=== PATIENT | male | born 1975 | race Caucasian/White ===

== ENCOUNTER 2017-08-28 19:45 | Inpatient (IN) | payer OTHER ==
[~2017-08-28] VITALS: Ht 149.9 cm; Wt 37.7 kg
[2017-08-28] MEDS ORDERED: divalproex sod 125mg sprinkle cap PO ONE (20:30)
[2017-08-28] MEDS ORDERED: divalproex sod 125mg sprinkle cap PO SCH (20:30)
[2017-08-28 21:01] LABS: BASOPHILS # (AUTO) 0.1 X10'3 (0-0.2); BASOPHILS % (AUTO) 0.4 % (0-1); EOSINOPHILS # (AUTO) 0.4 X10'3 (0-0.9); EOSINOPHILS % (AUTO) 2.5 % (0-6); HEMATOCRIT 34.1 % (42.0-52.0); HEMOGLOBIN 11.7 g/dl (14.0-17.9); LYMPHOCYTES # (AUTO) 3.5 X10'3 (1.1-4.8); MEAN CORPUSCULAR HEMOGLOBIN 27.6 PG (27.0-31.0); MEAN CORPUSCULAR HGB CONC 34.2 % (33.0-36.5); MEAN CORPUSCULAR VOLUME 80.6 FL (78-98); MONOCYTES # (AUTO) 1.5 X10'3 (0-0.9); MONOCYTES % (AUTO) 8.8 % (2-12); NEUTROPHILS # (AUTO) 11.1 X10'3 (1.8-7.7); NEUTROPHILS % (AUTO) 67.3 % (42-75); PLATELET COUNT 348 X10'3 (140-440); RED BLOOD COUNT 4.23 X10'6 (4.70-6.10); RED CELL DISTRIBUTION WIDTH 20.7 % (11.5-14.5); WHITE BLOOD COUNT 16.5 X10'3 (4.5-11.0)
[2017-08-28 21:24] LABS: ALANINE AMINOTRANSFERASE 25 U/L (12-78); ALBUMIN 3.9 G/DL (3.4-5.0); ALBUMIN/GLOBULIN RATIO 0.8 (1.1-1.5); ALKALINE PHOSPHATASE 81 IU/L (46-116); ANION GAP 13 (8-16); ASPARTATE AMINO TRANSFERASE 26 U/L (10-37); BILIRUBIN,TOTAL 0.3 MG/DL (0.1-1.0); BLOOD UREA NITROGEN 35 MG/DL (7-18); BUN/CREATININE RATIO 34.3 (5.4-32.0); CALCIUM 9.5 MG/DL (8.5-10.1); CHLORIDE 104 MMOL/L (99-107); CREATININE 1.02 MG/DL (0.60-1.10); GLUCOSE 153 MG/DL (70-104); POTASSIUM 3.6 MMOL/L (3.5-5.1); SODIUM 144 MMOL/L (135-145); TOTAL CARBON DIOXIDE 27.4 MMOL/L (24-32); TOTAL PROTEIN 8.6 G/DL (6.4-8.2); eGFR 80 ML/MIN
[2017-08-29 00:15] LABS: VALPROATE 9 UG/ML (50-100)
[2017-08-29 00:18] LABS: CARBAMAZEPINE (TEGRETOL) 2.5 UG/ML (4.0-12.0)
[2017-08-29] MEDS ORDERED: normal saline 1000ml 1,000 ML IV SCH (00:21)
[2017-08-29] MEDS ORDERED: magnesium 2GM in 50ml NS 50 ML IV PRN (00:25)
[2017-08-29] MEDS ORDERED: magnesium hydroxide 30ml (MOM) UD suspension PO PRN (00:25)
[2017-08-29] MEDS ORDERED: mag hydrox/Alum hydrox/simeth 30ml oral suspension PO PRN (00:25)
[2017-08-29] MEDS ORDERED: ondansetron/PF 4mg/2ml inj IV PRN (00:25)
[2017-08-29] MEDS ORDERED: potassium Cl 20 mEq SR tablet PO PRN ×2 (00:25)
[2017-08-29] MEDS ORDERED: magnesium 4gm in 100ml NS 100 ML IV PRN (00:25)
[2017-08-29] MEDS ORDERED: magnesium Cl slow-release 64mg tablet PO PRN (00:25)
[2017-08-29] MEDS ORDERED: potassium Cl 40MEQ/NS 500ml 500 ML IV PRN ×2 (00:25)
[2017-08-29] MEDS ORDERED: acetaminophen 325mg tablet PO PRN (00:25)
[2017-08-29 00:51] LABS: CLARITY,URINE CLEAR (Clear); COLOR,URINE YELLOW (Yellow); GLUCOSE, URINE NEGATIVE (Neg); KETONES,URINE NEGATIVE (Neg); LEUKOCYTE ESTERASE ,URINE NEGATIVE (Neg); NITRITES, URINE NEGATIVE (Neg); OCCULT BLOOD,URINE TRACE-INTACT (Neg); PH,URINE 5.5 (4.8-8.0); PROTEIN,URINE TRACE mg/dl (Neg); UROBILINOGEN,URINE 0.2 E.U/dL (0.2-1.0)
[2017-08-29 00:59] LABS: UA COLLECTION TYPE CLN CATCH MIDSTREAM
[2017-08-29 01:00] LABS: BACTERIA,URINE FEW /HPF (Neg); MUCUS STRANDS FEW /LPF (Neg); RBC,URINE 0-2 /HPF (0-2); SQUAMOUS EPITHELIAL CELL,UR FEW /LPF (FEW); WBC,URINE 0-4 /HPF (0-4)
[2017-08-29] MEDS ORDERED: MULT-38 PO (02:36)
[2017-08-29] MEDS ORDERED: CARB200C4 PO (02:36)
[2017-08-29] MEDS ORDERED: DIVA125C10 PO (02:36)
[2017-08-29] MEDS ORDERED: LACT1CAP65 PO (02:36)
[2017-08-29] MEDS ORDERED: LORazepam 2 mg/ml vial IM ONE (04:10)
[2017-08-29] MEDS: multivitamins, therapeutics tablet PO SCH (06:41)
[2017-08-29] MEDS: lactobacillus rhamnosus 10,000 MMU CELLS/CAPSULE PO SCH ×2 (06:41→20:00)
[2017-08-29 07:36] VITALS: BP 108/64
[2017-08-29] MEDS ORDERED: divalproex sod 125mg sprinkle cap PO SCH (08:00)
[2017-08-29] MEDS ORDERED: CefTRIAXone 1000mg IM Kit (w/lidocaine diluent) IM SCH (08:00)
[2017-08-29] MEDS ORDERED: carBAMazepine Ext. Release 200 MG TAB.ER.12H PO SCH (08:00)
[2017-08-29] MEDS: NORMAL SALINE IV SCH ×4 (08:00→19:40)
[2017-08-29] MEDS ORDERED: LACTOBACILLUS ACIDOPHILUS PO SCH (08:00)
[2017-08-29] MEDS: VALPROATE SOD IV SCH ×4 (08:00→19:40)
[2017-08-29] MEDS: K and/or MAG REPLACEMENT MC SCH (08:00)
[2017-08-29 10:00] VITALS: BP 102/64
[2017-08-29 14:16] LABS: BASOPHILS # (AUTO) 0.1 X10'3 (0-0.2); BASOPHILS % (AUTO) 0.5 % (0-1); EOSINOPHILS # (AUTO) 0.2 X10'3 (0-0.9); EOSINOPHILS % (AUTO) 1.2 % (0-6); HEMOGLOBIN 11.1 g/dl (14.0-17.9); LYMPHOCYTES # (AUTO) 2.8 X10'3 (1.1-4.8); LYMPHOCYTES % (AUTO) 18.3 % (21-51); MEAN CORPUSCULAR HGB CONC 33.7 % (33.0-36.5); MEAN CORPUSCULAR VOLUME 80.1 FL (78-98); MEAN PLATELET VOLUME 7.8 FL (7.4-10.4); MONOCYTES # (AUTO) 1.5 X10'3 (0-0.9); MONOCYTES % (AUTO) 9.3 % (2-12); NEUTROPHILS % (AUTO) 70.7 % (42-75); PLATELET COUNT 307 X10'3 (140-440); RED BLOOD COUNT 4.12 X10'6 (4.70-6.10); RED CELL DISTRIBUTION WIDTH 20.2 % (11.5-14.5); WHITE BLOOD COUNT 15.6 X10'3 (4.5-11.0)
[2017-08-29] MEDS ORDERED: CefTRIAXone/D5W-Rocephin 1gm 50 ML IV ONE (14:20)
[2017-08-29] MEDS: heparin, porcine 5000 units/ml vial SQ SCH ×2 (14:55→20:00)
[2017-08-29] MEDS: potassium CL 20mEq in D5-1/2NS 1,000 ML IV SCH (15:56)
[2017-08-29 18:00] VITALS: BP 118/60
[2017-08-30] MEDS: VALPROATE SOD IV SCH ×4 (02:12→19:57)
[2017-08-30] MEDS: NORMAL SALINE IV SCH ×4 (02:12→19:57)
[2017-08-30] MEDS: potassium CL 20mEq in D5-1/2NS 1,000 ML IV SCH ×2 (02:14→11:21)
[2017-08-30 06:11] LABS: BASOPHILS # (AUTO) 0.1 X10'3 (0-0.2); BASOPHILS % (AUTO) 0.4 % (0-1); EOSINOPHILS # (AUTO) 0.3 X10'3 (0-0.9); EOSINOPHILS % (AUTO) 2.1 % (0-6); HEMATOCRIT 30.6 % (42.0-52.0); HEMOGLOBIN 10.4 g/dl (14.0-17.9); LYMPHOCYTES # (AUTO) 2.7 X10'3 (1.1-4.8); LYMPHOCYTES % (AUTO) 18.8 % (21-51); MEAN CORPUSCULAR HEMOGLOBIN 27.3 PG (27.0-31.0); MEAN CORPUSCULAR HGB CONC 34.1 % (33.0-36.5); MEAN CORPUSCULAR VOLUME 80.2 FL (78-98); MEAN PLATELET VOLUME 8.6 FL (7.4-10.4); MONOCYTES # (AUTO) 1.3 X10'3 (0-0.9); MONOCYTES % (AUTO) 9.1 % (2-12); NEUTROPHILS % (AUTO) 69.6 % (42-75); PLATELET COUNT 245 X10'3 (140-440); RED BLOOD COUNT 3.82 X10'6 (4.70-6.10); RED CELL DISTRIBUTION WIDTH 20.5 % (11.5-14.5); WHITE BLOOD COUNT 14.4 X10'3 (4.5-11.0)
[2017-08-30 06:26] LABS: ALBUMIN 2.7 G/DL (3.4-5.0); ANION GAP 12 (8-16); BLOOD UREA NITROGEN 14 MG/DL (7-18); BUN/CREATININE RATIO 18.2 (5.4-32.0); CALCIUM 8.5 MG/DL (8.5-10.1); CHLORIDE 107 MMOL/L (99-107); CREATININE 0.77 MG/DL (0.60-1.10); GLUCOSE 116 MG/DL (70-104); MAGNESIUM 1.9 MG/DL (1.5-2.4); POTASSIUM 3.6 MMOL/L (3.5-5.1); SODIUM 141 MMOL/L (135-145); TOTAL CARBON DIOXIDE 22.5 MMOL/L (24-32); eGFR > 90 ML/MIN
[2017-08-30] MEDS: K and/or MAG REPLACEMENT MC SCH (08:00)
[2017-08-30] MEDS ORDERED: carbamazepine 100mg ER CAPSULE (12-hour) PO SCH (08:00)
[2017-08-30] MEDS: heparin, porcine 5000 units/ml vial SQ SCH ×2 (08:00→20:00)
[2017-08-30] MEDS: multivitamins, therapeutics tablet PO SCH (08:00)
[2017-08-30] MEDS: lactobacillus rhamnosus 10,000 MMU CELLS/CAPSULE PO SCH ×2 (08:37→19:54)
[2017-08-30] MEDS: CefTRIAXone inj 1,000 MG in normal saline 100ml IV soln 100 ML IV SCH (08:38)
[2017-08-30 10:53] VITALS: BP 122/68
[2017-08-30] MEDS: ACETAMINOPHEN 160 MG PO PRN (15:58)
[2017-08-30 18:00] VITALS: BP 110/68
[2017-08-30] MEDS: carBAMazepine Ext. Release 200 MG TAB.ER.12H PO SCH (20:00)
[2017-08-30 23:00] VITALS: BP 110/66
[2017-08-31] MEDS: potassium CL 20mEq in D5-1/2NS 1,000 ML IV SCH ×3 (00:05→16:25)
[2017-08-31] MEDS: ACETAMINOPHEN 160 MG PO PRN ×2 (00:08→10:23)
[2017-08-31] MEDS: NORMAL SALINE IV SCH ×4 (01:46→20:26)
[2017-08-31] MEDS: VALPROATE SOD IV SCH ×4 (01:46→20:26)
[2017-08-31 05:00] VITALS: BP 112/78
[2017-08-31 06:02] LABS: BASOPHILS # (AUTO) 0.1 X10'3 (0-0.2); BASOPHILS % (AUTO) 0.5 % (0-1); EOSINOPHILS # (AUTO) 0.3 X10'3 (0-0.9); EOSINOPHILS % (AUTO) 1.4 % (0-6); HEMATOCRIT 31.8 % (42.0-52.0); LYMPHOCYTES # (AUTO) 3.7 X10'3 (1.1-4.8); LYMPHOCYTES % (AUTO) 20.4 % (21-51); MEAN CORPUSCULAR HEMOGLOBIN 27.5 PG (27.0-31.0); MEAN CORPUSCULAR HGB CONC 34.7 % (33.0-36.5); MEAN CORPUSCULAR VOLUME 79.3 FL (78-98); MEAN PLATELET VOLUME 8.3 FL (7.4-10.4); MONOCYTES # (AUTO) 1.3 X10'3 (0-0.9); MONOCYTES % (AUTO) 7.2 % (2-12); NEUTROPHILS % (AUTO) 70.5 % (42-75); PLATELET COUNT 248 X10'3 (140-440); RED BLOOD COUNT 4.01 X10'6 (4.70-6.10); WHITE BLOOD COUNT 18.4 X10'3 (4.5-11.0)
[2017-08-31 06:24] LABS: ALBUMIN 2.9 G/DL (3.4-5.0); ANION GAP 11 (8-16); BLOOD UREA NITROGEN 9 MG/DL (7-18); BUN/CREATININE RATIO 11.7 (5.4-32.0); CALCIUM 8.9 MG/DL (8.5-10.1); CHLORIDE 107 MMOL/L (99-107); CREATININE 0.77 MG/DL (0.60-1.10); GLUCOSE 118 MG/DL (70-104); MAGNESIUM 2.1 MG/DL (1.5-2.4); POTASSIUM 3.4 MMOL/L (3.5-5.1); SODIUM 143 MMOL/L (135-145); TOTAL CARBON DIOXIDE 25.1 MMOL/L (24-32); eGFR > 90 ML/MIN
[2017-08-31 06:34] LABS: CARBAMAZEPINE (TEGRETOL) 5.9 UG/ML (4.0-12.0)
[2017-08-31] MEDS: carBAMazepine Ext. Release 200 MG TAB.ER.12H PO SCH ×2 (08:00→19:35)
[2017-08-31] MEDS: potassium chloride 10mEq CAPSULE.SA PO SCH (08:00)
[2017-08-31] MEDS: multivitamins, therapeutics tablet PO SCH (08:00)
[2017-08-31] MEDS: heparin, porcine 5000 units/ml vial SQ SCH ×2 (08:00→19:35)
[2017-08-31] MEDS: azithromycin/NS 500mg/250ml 250 ML IV SCH ×2 (08:34→09:00)
[2017-08-31] MEDS: lactobacillus rhamnosus 10,000 MMU CELLS/CAPSULE PO SCH ×2 (08:36→20:26)
[2017-08-31] MEDS: K and/or MAG REPLACEMENT MC SCH (08:50)
[2017-08-31 10:00] VITALS: BP 110/65
[2017-08-31] MEDS: CefTRIAXone inj 1,000 MG in normal saline 100ml IV soln 100 ML IV SCH (10:19)
[2017-08-31 18:30] VITALS: BP 110/70
[2017-08-31 22:00] VITALS: BP 102/64
[2017-09-01] MEDS: potassium CL 20mEq in D5-1/2NS 1,000 ML IV SCH (04:25)
[2017-09-01] MEDS: VALPROATE SOD IV SCH ×2 (04:27→12:31)
[2017-09-01] MEDS: NORMAL SALINE IV SCH ×2 (04:27→12:31)
[2017-09-01 06:00] VITALS: BP 102/62
[2017-09-01 06:00] LABS: BASOPHILS # (AUTO) 0.1 X10'3 (0-0.2); BASOPHILS % (AUTO) 0.5 % (0-1); EOSINOPHILS # (AUTO) 0.4 X10'3 (0-0.9); EOSINOPHILS % (AUTO) 3.9 % (0-6); HEMOGLOBIN 10.5 g/dl (14.0-17.9); LYMPHOCYTES # (AUTO) 2.3 X10'3 (1.1-4.8); LYMPHOCYTES % (AUTO) 21.1 % (21-51); MEAN CORPUSCULAR HEMOGLOBIN 27.3 PG (27.0-31.0); MEAN CORPUSCULAR HGB CONC 33.9 % (33.0-36.5); MEAN CORPUSCULAR VOLUME 80.4 FL (78-98); MEAN PLATELET VOLUME 8.3 FL (7.4-10.4); MONOCYTES # (AUTO) 1.3 X10'3 (0-0.9); MONOCYTES % (AUTO) 12.2 % (2-12); NEUTROPHILS # (AUTO) 6.7 X10'3 (1.8-7.7); NEUTROPHILS % (AUTO) 62.3 % (42-75); PLATELET COUNT 301 X10'3 (140-440); RED BLOOD COUNT 3.85 X10'6 (4.70-6.10); WHITE BLOOD COUNT 10.8 X10'3 (4.5-11.0)
[2017-09-01 06:22] LABS: ALBUMIN 2.8 G/DL (3.4-5.0); ANION GAP 9 (8-16); BLOOD UREA NITROGEN 10 MG/DL (7-18); BUN/CREATININE RATIO 13.7 (5.4-32.0); CALCIUM 8.9 MG/DL (8.5-10.1); CHLORIDE 109 MMOL/L (99-107); CREATININE 0.73 MG/DL (0.60-1.10); GLUCOSE 100 MG/DL (70-104); POTASSIUM 3.9 MMOL/L (3.5-5.1); SODIUM 144 MMOL/L (135-145); TOTAL CARBON DIOXIDE 26.2 MMOL/L (24-32); eGFR > 90 ML/MIN
[2017-09-01] MEDS: carBAMazepine Ext. Release 200 MG TAB.ER.12H PO SCH (08:00)
[2017-09-01] MEDS: multivitamins, therapeutics tablet PO SCH (08:00)
[2017-09-01] MEDS: heparin, porcine 5000 units/ml vial SQ SCH (08:00)
[2017-09-01] MEDS: K and/or MAG REPLACEMENT MC SCH (08:00)
[2017-09-01] MEDS: potassium chloride 10mEq CAPSULE.SA PO SCH (08:00)
[2017-09-01] MEDS: lactobacillus rhamnosus 10,000 MMU CELLS/CAPSULE PO SCH (08:38)
[2017-09-01] MEDS: CefTRIAXone inj 1,000 MG in normal saline 100ml IV soln 100 ML IV SCH (08:58)
[2017-09-01] MEDS: azithromycin/NS 500mg/250ml 250 ML IV SCH (09:52)
[2017-09-01] MEDS ORDERED: AZI25OT PO (09:55)
[2017-09-01 10:00] VITALS: BP 120/70
[2017-09-01] MEDS: ACETAMINOPHEN 160 MG PO PRN (10:07)
[2017-09-02] MEDS ORDERED: azithromycin 250mg tablet PO SCH (08:00)
== END 2017-09-01 13:55 | disposition home or self-care (01) | DRG 101 ==
LOC: ER 19:46 → ED HOLD 08-29 00:21 → ORTHO 4S 08-29 07:10
PROVIDERS: ADMIT Internal Medicine; ATTEND Internal Medicine
DX: G40.909 Epilepsy, unspecified, not intractable, without status epilepticus (principal); E87.2 Acidosis; F72 Severe intellectual disabilities; E86.0 Dehydration; D64.9 Anemia, unspecified; D72.829 Elevated white blood cell count, unspecified; G80.9 Cerebral palsy, unspecified; J44.9 Chronic obstructive pulmonary disease, unspecified; Z88.0 Allergy status to penicillin; Q02 Microcephaly; Z79.899 Other long term (current) drug therapy
CPT/HCPCS: 36415; 70450; 71045; 80048; 80053; 80156; 80164; 81001; 83605; 83735; 84145; 85025; 87040; 87070; 99285; A6212; J0456; J0696; J1644; J2060; J3480; J7030